=== PATIENT | male | born 1935 | race Two or more races ===

== ENCOUNTER 2021-11-10 11:43 | Emergency (ER) | payer OTHER ==
[~2021-11-10] VITALS: Ht 172.7 cm; Wt 80.3 kg
[~2021-11-10 11:43] MED LIST: ENALAPRIL MALE2.5 MG; GLIMEPIRIDE4 MG; GLUMETZA1000 MG; LANTUS SOL100 UNIT/1; NOVOLOG100 UNIT/1; SYNTHROID75 MCG; ULTRAM50 MG PO
[2021-11-10] MEDS ORDERED: LASIX20 MG PO (17:10)
== END 2021-11-10 14:36 | disposition home or self-care (01) ==
LOC: ER 11:43
DX: R60.0 Localized edema (principal); E11.42 Type 2 diabetes mellitus with diabetic polyneuropathy; Z79.4 Long term (current) use of insulin; E11.51 Type 2 diabetes mellitus with diabetic peripheral angiopathy without gangrene; I70.203 Unspecified atherosclerosis of native arteries of extremities, bilateral legs; Z88.0 Allergy status to penicillin

== ENCOUNTER 2023-06-10 20:54 | Emergency (ER) | payer OTHER ==
[~2023-06-10] VITALS: Ht 172.7 cm; Wt 79.4 kg
[~2023-06-10 20:54] MED LIST changes: +LASIX20 MG PO
[2023-06-10] MEDS ORDERED: DAFLONEX-XL 11300 MG (21:28)
[2023-06-11] MEDS ORDERED: RINGERS SOLUTION,LACTATED 1,000 ML IV STA (01:22)
[2023-06-11 01:42] LABS: ABG PO2 89.5 mmHg (80-100); BASE EXCESS 4.1 mmol/l; BICARBONATE 28.5 mmol/l (23-25); SaO2 97.4 %; Tco2 29.8 mmol/l
[2023-06-11 01:43] LABS: allen test SATISFACTORY; o2 21 %; puncture site RADIAL LEFT
[2023-06-11 02:42] LABS: ERYTHROCYTE SEDIMENTATION RATE 37 mm/hr; HEMATOCRIT 40.6 % (39.0-48.0); HEMOGLOBIN 13.9 g/dL (13-16.00); MEAN CELL VOLUME 93.2 fL (80.0-100.00); MEAN CORPUSCULAR HEMOGLOBIN 31.8 pg (27.00-32.0); MEAN CORPUSCULAR HGB CONC 34.2 g/dl (32.0-36.0); PLATELET COUNT 219 K/uL (150-450); RED BLOOD COUNT 4.36 M/uL (4.00-6.00); RED CELL DISTRIBUTION WIDTH 13.6 % (11.5-14.5)
[2023-06-11 02:55] LABS: INR 1.04; PROTHROMBIN TIME 10.9 SECONDS (9.0-11.5)
[2023-06-11 03:15] LABS: PH,URINE 6.5 (5.0-8.0); URINE APPEARANCE Clear; URINE BILIRRUBIN Negative (NEGATIVE); URINE BLOOD Negative; URINE COLOR Yellow; URINE GLUCOSE Negative (NEGATIVE); URINE LEUKOCYTE Negative; URINE NITRATE Negative; URINE PROTEIN Negative (NEGATIVE)
[2023-06-11 03:18] LABS: URINE BACTERIA 15.1 uL (0.0-1933); URINE RBC 3.3 uL (0.0-20.8); URINE WBC 1.9 uL (0.0-23.2)
[2023-06-11 03:19] LABS: URINE EPITHELIAL CELLS 1.3 uL (0.0-38.8)
[2023-06-11 03:21] LABS: ALBUMIN 3.7 gm/dL (3.4-5.0); BILIRUBIN TOTAL 0.9 mg/dL (0.3-1.2); CALCIUM 9.5 mg/dL (8.5-10.1); CREATININE SERUM 1.02 mg/dL (0.70-1.30); GFR 69.25; GLOBULINA 3.8 G/DL (2.4-3.5); POTASSIUM 3.81 mEq/L (3.5-5.1); TOTAL PROTEIN 7.5 gm/dL (6.4-8.2)
[2023-06-11 03:33] LABS: C-REACTIVE PROTEIN 0.51 MG/DL (0.00-0.29)
== END 2023-06-11 05:40 | disposition home or self-care (01) ==
LOC: ER 20:54
DX: R60.9 Edema, unspecified (principal); E11.9 Type 2 diabetes mellitus without complications; Z79.4 Long term (current) use of insulin; Z79.84 Long term (current) use of oral hypoglycemic drugs; I10 Essential (primary) hypertension; M79.7 Fibromyalgia; I50.9 Heart failure, unspecified; Z88.0 Allergy status to penicillin
CPT/HCPCS: 36415; 71045; 82803; 93005; 96365; 99284; J7120

== ENCOUNTER 2023-06-17 00:54 | Inpatient (IN) | payer OTHER ==
[~2023-06-17] VITALS: Ht 172.7 cm; Wt 77.1 kg
[~2023-06-17 00:54] MED LIST changes: +DAFLONEX-XL 11300 MG
[2023-06-17] MEDS ORDERED: CIPROFLOXACIN IN 5 % DEXTROSE 400 MG/200 ML PIGGYBAG IV STA (02:21)
[2023-06-17 03:16] LABS: HEMATOCRIT 40.8 % (39.0-48.0); HEMOGLOBIN 13.8 g/dL (13-16.00); MEAN CELL VOLUME 91.5 fL (80.0-100.00); MEAN CORPUSCULAR HGB CONC 33.9 g/dl (32.0-36.0); PLATELET COUNT 224 K/uL (150-450); RED BLOOD COUNT 4.46 M/uL (4.00-6.00); RED CELL DISTRIBUTION WIDTH 13.6 % (11.5-14.5)
[2023-06-17 03:23] LABS: INR 1.05; PARTIAL THROMBOPLASTIN TIME 27.9 SECONDS (22.0-34.0)
[2023-06-17 03:28] LABS: ALBUMIN 3.6 gm/dL (3.4-5.0); BILIRUBIN TOTAL 0.53 mg/dL (0.3-1.2); CALCIUM 9.3 mg/dL (8.5-10.1); CREATININE SERUM 1.17 mg/dL (0.70-1.30); GFR 59.11; POTASSIUM 4.07 mEq/L (3.5-5.1); TOTAL PROTEIN 7.6 gm/dL (6.4-8.2)
[2023-06-17 04:05] LABS: URINE APPEARANCE Clear; URINE BILIRRUBIN Negative (NEGATIVE); URINE BLOOD Negative; URINE COLOR Yellow; URINE GLUCOSE Negative (NEGATIVE); URINE LEUKOCYTE Negative; URINE NITRATE Negative; URINE PROTEIN Negative (NEGATIVE)
[2023-06-17 04:09] LABS: URINE BACTERIA 3.7 uL (0.0-1933); URINE RBC 0.8 uL (0.0-20.8)
[2023-06-17] MEDS ORDERED: SODIUM CHLORIDE 0.45 % 1,000 ML IV SCH (09:15)
[2023-06-17] MEDS ORDERED: CEFTRIAXONE SODIUM 1,000 MG in DEXTROSE 5 % IN WATER 100 ML IV SCH (09:28)
[2023-06-17] MEDS ORDERED: VANCOMYCIN HCL 1,000 MG VIAL IV SCH (09:29)
[2023-06-17] MEDS ORDERED: MUPIROCIN CALCIUM TOP SCH (09:29)
[2023-06-17] MEDS ORDERED: CLOTRIMAZOLE/BETAMETHASONE DIP 15 GM TUBE TOP SCH ×2 (09:30→17:00)
[2023-06-17] MEDS ORDERED: PANTOPRAZOLE SODIUM 40 MG TABLET.DR PO SCH (09:30)
[2023-06-17] MEDS ORDERED: ENOXAPARIN SODIUM 30 MG/0.3 ML SYRINGE SUBCUTANEO SCH (09:30)
[2023-06-17] MEDS ORDERED: FLUCONAZOLE 100 MG TABLET PO SCH (09:30)
[2023-06-17] MEDS ORDERED: TRAMADOL HCL 50 MG TABLET PO PRN (09:45)
[2023-06-18] MEDS ORDERED: LEVOTHYROXINE SODIUM 75 MCG TABLET PO SCH (06:00)
[2023-06-18 08:02] LABS: URINE APPEARANCE Cloudy; URINE BILIRRUBIN Negative (NEGATIVE); URINE BLOOD Moderate; URINE COLOR Yellow; URINE GLUCOSE Negative (NEGATIVE); URINE LEUKOCYTE Negative; URINE NITRATE Negative; URINE PROTEIN Negative (NEGATIVE)
[2023-06-18 08:09] LABS: URINE BACTERIA 3.7 uL (0.0-1933); URINE EPITHELIAL CELLS 0.6 uL (0.0-38.8); URINE WBC 0 uL (0.0-23.2)
[2023-06-18] MEDS ORDERED: FUROsemide 20 MG TABLET PO SCH (09:00)
[2023-06-18] MEDS ORDERED: LOSARTAN POTASSIUM 50 MG TABLET PO SCH (09:00)
[2023-06-18] MEDS ORDERED: CLOPIDOGREL BISULFATE 75 MG TABLET PO SCH (09:00)
[2023-06-18] MEDS ORDERED: ASPIRIN 81 MG TAB.CHEW PO SCH (09:00)
[2023-06-18] MEDS ORDERED: ATORVASTATIN CALCIUM 20 MG TABLET PO SCH (09:00)
[2023-06-18] MEDS ORDERED: FLUCONAZOLE 200 MG TABLET PO SCH (09:00)
[2023-06-18] MEDS ORDERED: CEFAZOLIN SODIUM 2,000 MG in 0.9 % SODIUM CHLORIDE 100 ML IV SCH (17:00)
[2023-06-18] MEDS ORDERED: MELATONIN 5 MG TABLET PO SCH (21:00)
== END 2023-06-18 19:51 | disposition home or self-care (01) | DRG 638 ==
LOC: ER 00:54 → SEC-K 10:13 → MEDJ 11:43 → MEDI 12:57
PROVIDERS: General Practice; ADMIT Internal Medicine; ATTEND Internal Medicine
PROC: BQ3HZZZ Magnetic Resonance Imaging (MRI) of Left Ankle (ICD-10-PCS; principal; 2023-06-17)
PROC: B246ZZZ Ultrasonography of Right and Left Heart (ICD-10-PCS; 2023-06-17)
PROC: B54CZZZ Ultrasonography of Left Lower Extremity Veins (ICD-10-PCS; 2023-06-17)
DX: E11.621 Type 2 diabetes mellitus with foot ulcer (principal); I50.22 Chronic systolic (congestive) heart failure; L97.829 Non-pressure chronic ulcer of other part of left lower leg with unspecified severity; N39.0 Urinary tract infection, site not specified; L03.116 Cellulitis of left lower limb; M79.672 Pain in left foot; R60.0 Localized edema; R60.1 Generalized edema; I83.029 Varicose veins of left lower extremity with ulcer of unspecified site; Z79.84 Long term (current) use of oral hypoglycemic drugs; I83.028 Varicose veins of left lower extremity with ulcer other part of lower leg; Z79.85 Long-term (current) use of injectable non-insulin antidiabetic drugs; Z20.822 Contact with and (suspected) exposure to COVID-19; I11.9 Hypertensive heart disease without heart failure; E78.5 Hyperlipidemia, unspecified; B95.61 Methicillin susceptible Staphylococcus aureus infection as the cause of diseases classified elsewhere